=== PATIENT | female | born 1995 | race Caucasian/White ===

== ENCOUNTER 2023-11-22 22:08 | Emergency (ER) | payer OTHER ==
[2023-11-22 22:14] VITALS: BP 113/73; PULSE 78; RESP 18; TEMP 98.3; BMI 30.2
[2023-11-22] MEDS: ACETAMINOPHEN 325 MG TABLET (FP) PO ONE (23:25)
[2023-11-22] MEDS ORDERED: ACETAMINOPHEN 325 MG TABLET (FP) ONE (23:27)
== END 2023-11-23 00:20 | disposition home or self-care (01) ==
LOC: JER 22:08
PROC: 2W3RX1Z Immobilization of Left Lower Leg using Splint (ICD-10-PCS; principal; 2023-11-22)
DX: S92.352A Displaced fracture of fifth metatarsal bone, left foot, initial encounter for closed fracture (principal); W01.0XXA Fall on same level from slipping, tripping and stumbling without subsequent striking against object, initial encounter
CPT/HCPCS: 73610-TC-LT-FY; 73630-TC-LT; 99283-25